=== PATIENT | female | born 1950 | race Caucasian/White ===

== ENCOUNTER 2016-09-20 17:28 | Emergency (ER) | payer OTHER ==
[2016-09-20 17:51] VITALS: BP 112/67; PULSE 78; RESP 16; TEMP 98.1; O2SAT 92
[2016-09-20] MEDS ORDERED: AMOXICILLIN/CLAVULANATE POT 875/125 MG TAB PO ONE ×2 (19:24→19:43)
--- NOTE | 2016-09-20 19:26 | UCPHY ---
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 Bite was to the wrist and the patient quickly withdrew her hand this does not think there is any significant compression involved but there workup puncture wounds and the superficial abrasion. The incident occurred at 3:00 p.m.. She clean the wound with peroxide and soapy water. She reports mild localized discomfort and thinks she might be slight warmth to touch to the area. She reports the pain is mild ROS: No fevers or chills. No numbness tingling. No difficulty moving affected fingers. 5 point ROS is otherwise negative. Smoking Status: Never smoked Physical Exam: Physical Exam Vital signs are normal. General: No acute distress Eyes: Pupils equal and react to light. Extraocular motions are intact. Lungs: No respiratory distress. Cardiac: Brisk capillary refill is intact throughout. Pulses are 2+ and symmetric in the affected extremity. Skin: No rash or pallor. Extremities: Atraumatic except for right distal forearm/wrist: Patient has 2 small puncture wounds 2 mm or so in size to the dorsum of the distal forearm- ulnar aspect there is also 1 cm superficial abrasion. Minimal underlying swelling. No foreign bodies and direct examination. Patient is able to extend all fingers without difficulty and versus resistance with full strength maintained mom no fluctuance. No erythema. Perhaps minimal warmth to touch. Neuro: Alert with no sensorimotor deficits in the affected extremity. Constitutional: Initial Vital Signs Temperature (C) 36.7 C 09/20/16 17:48 Heart Rate 78 09/20/16 17:48 Respiratory Rate 16 09/20/16 17:48 Blood Pressure 112/67 09/20/16 17:48 O2 Sat (%) 92 09/20/16 17:48 O2 Delivery Mode Room Air Allergies/Adverse Reactions: Sulfa (Sulfonamide Antibiotics) Allergy (Verified 09/20/16 17:48) Home Medications: Medication Instructions Recorded Amox Tr/K Clav (Augmentin) 500 mg PO TID #21 tab 09/20/16 [Augmentin 500/125 MG TAB (*)] MDM/Departure - MDM Medications Given: Discontinued Medications Amoxicillin/Clavulanate Potassium (Augmentin 875mg) 875 mg PO EDNOW ONE PRN Reason: Protocol Stop: 09/20/16 19:25 Last Admin: 09/20/16 19:30 Dose: 875 mg ED Course/Re-evaluation: Counseled the patient regarding her wound. She declined further cleaning here. No clinical evidence of foreign body, significant injury or other complications. Currently no evidence of cellulitis. Treated with 1st dose of Augmentin - Depart Disposition: Home, Routine, Self-Care Clinical Impression: Cat bite involving extremity Condition: Good Instructions: Animal Bite (ED) Additional Instructions: Dx: Cat bite R. wrist Plan: Apply warm packs to affected wrist augmentin antibiotic ibuprofen and tylenol for pain if needed. Return for any significant worsening despite treatment plan. Prescriptions: Amox Tr/K Clav (Augmentin) [Augmentin 500/125 MG TAB (*)] 500 mg PO TID #21 tab Referrals: NONE *PRIMARY CARE P,. [Primary Care Provider] - As per Instructions - PQRS PQRS Measurement: NA
== END 2016-09-20 19:56 | disposition home or self-care (01) ==
LOC: CED 17:28
DX: S61.531A Puncture wound without foreign body of right wrist, initial encounter (principal); Y99.0 Civilian activity done for income or pay; W55.01XA Bitten by cat, initial encounter
CPT/HCPCS: G0463-PO

== ENCOUNTER 2018-09-11 07:29 | Inpatient (IN) | payer OTHER, MEDICARE ==
[2018-09-11] MEDS ORDERED: PIPERACILLIN/TAZO 3.375 GM/DEX 50 ML IV ONE (08:05)
[2018-09-11] MEDS ORDERED: TDAP ADULT 0.5 ML INJ (BOOSTRIX) IM ONE (08:15)
--- NOTE | 2018-09-11 08:15 | EDPHY ---
H & P Stated Complaint: cat bite l hand yesterday/not responding to oral abx Time Seen by Provider: 09/11/18 07:50 HPI/ROS: CHIEF COMPLAINT: Cat bite left hand HISTORY OF PRESENT ILLNESS: 68-year-old female presents with a an infected cat bite to the left hand. She sustained multiple cat bites to the left hand and left forearm yesterday at work. She started Augmentin yesterday evening. She has taken 2 doses of Augmentin. This morning she woke up with increasing pain and swelling of the left hand and left forearm. The pain is moderate and is associated with drainage from 1 of the wounds. No fever. Tetanus is not up-to- date. REVIEW OF SYSTEMS: complete 10 point ROS reviewed and is negative except for the noted elements in the HPI - Personal History Current Tetanus Diphtheria and Acellular Pertussis (TDAP): Unsure - Medical/Surgical History Hx Asthma: No Hx Chronic Respiratory Disease: No Hx Diabetes: No Hx Cardiac Disease: No Hx Renal Disease: No Hx Cirrhosis: No Hx Alcoholism: No Hx HIV/AIDS: No Hx Splenectomy or Spleen Trauma: No Other PMH: denies - Social History Smoking Status: Never smoked - Physical Exam Exam: General Appearance: Alert, pleasant Eyes: Pupils equal and round, no conjunctival pallor or injection ENT, Mouth: Mucous membranes moist Neck: Normal inspection Respiratory: Lungs are clear to auscultation Cardiovascular: Regular rate and rhythm Gastrointestinal: Abdomen is soft and nontender Neurological: A&O, nonfocal, normal gait Skin: Warm and dry, no rash Extremities: Left upper extremity-multiple puncture wounds to the left forearm and hand, associated with erythema, warmth and tenderness on the dorsal aspect of the hand and the left forearm. Serous drainage at puncture site at the level of the 4th metacarpal Psychiatric: Mood and affect normal Constitutional: Initial Vital Signs Temperature (C) 37.2 C 09/11/18 07:34 Heart Rate 94 09/11/18 07:34 Respiratory Rate 18 09/11/18 07:34 Blood Pressure 111/61 09/11/18 07:34 O2 Sat (%) 94 09/11/18 07:34 O2 Delivery Mode Room Air Allergies/Adverse Reactions: Sulfa (Sulfonamide Antibiotics) Allergy (Verified 09/11/18 07:32) Home Medications: Medication Instructions Recorded Amoxicillin/Clavulanate Pot 875 mg PO BID 09/11/18 [Augmentin 875 MG TAB (*)] Carboxymethylcellulose 1% [Refresh 1 drop EACHEYE PRN PRN 09/11/18 Celluvisc] Fluticasone Nasal [Flonase Nasal 2 sprays EACHNARE DAILY PRN 09/11/18 [place] (RX)] Herbals/Supplements -Info Only 1 ea PO DAILY 09/11/18 Medical Decision Making - Diagnostics Imaging Results: X-ray independently reviewed by me reveals no foreign body. Imaging: I viewed and interpreted images myself ED Course/Re-evaluation: This patient presents with multiple infected cat bites to the left upper extremity. Likely pasteurella multocida, given onset less than 24 hr after cat bite. A wound culture was performed by me. Blood cultures were obtained and Zosyn IV given. X-ray reveals no evidence of foreign body. Does not meet SIRS criteria and initial lactate is normal. The hospitalist service was consulted for admission. Differential Diagnosis: includes though not limited to abscess, retained FB, tenosynovitis, joint infection - Data Points Laboratory Results: 09/11/18 08:04 VBG Lactic Acid 0.6 mmol/L L mmol/L (0.7-2.1) Medications Given: Enoxaparin Sodium (Lovenox) 40 mg SC DAILY BECK Stop: 03/10/19 08:59 Last Admin: 09/11/18 11:32 Dose: 40 mg Piperacillin/Tazobactam/Dextrose (Zosyn 3.375 Gm (Premix)) 50 mls @ 100 mls/hr IV Q6HRS BECK PRN Reason: Protocol Stop: 10/11/18 11:59 Last Admin: 09/11/18 11:32 Dose: 50 mls Discontinued Medications Diphtheria/Tetanus/Acell Pertussis (Boostrix) 0.5 ml IM .ONCE ONE Stop: 09/11/18 08:16 Last Admin: 09/11/18 09:02 Dose: 0.5 ml Piperacillin/Tazobactam/Dextrose (Zosyn 3.375 Gm (Premix)) 50 mls @ 100 mls/hr IV EDNOW ONE PRN Reason: Protocol Stop: 09/11/18 08:34 Last Admin: 09/11/18 08:59 Dose: 50 mls Departure - Departure Disposition: [facility] Inpatient Acute Clinical Impression: Cellulitis Qualifiers: Site of cellulitis: extremity Site of cellulitis of extremity: upper extremity Laterality: left Qualified Code(s): L03.114 - Cellulitis of left upper limb Condition: Good
[2018-09-11 08:43] LABS: PLATELET COUNT 276 10^3/uL (150-400)
[2018-09-11] MEDS ORDERED: ONDANSETRON DISINTEGRATING 4 MG TAB PO PRN (08:49)
[2018-09-11] MEDS ORDERED: OXYCODONE/APAP 5/325 TAB PO PRN (08:49)
[2018-09-11] MEDS ORDERED: ONDANSETRON 4 MG/2 ML VIAL IVP PRN (08:49)
[2018-09-11] MEDS ORDERED: ACETAMINOPHEN 325 MG TAB PO PRN (08:49)
[2018-09-11] MEDS: ENOXAPARIN 40 MG/0.4 ML SYR SC SCH (11:32)
[2018-09-11] MEDS: PIPERACILLIN/TAZO 3.375 GM/DEX 50 ML IV SCH ×3 (11:32→23:52)
--- NOTE | 2018-09-11 11:41 | ASMTCMCOM ---
CM Note CM Note Notes: Pt admitted for multiple infected cat bite wounds to her left hand and left forearm. Pt started Augmentin yesterday evening but woke up this morning with increased pain, swelling and drainage.. 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 Wound cultures and blood cultures pending. Anticipate pt to stabilize and DC home independent to followup outpatient. Date Signed: 09/11/2018 11:05 AM Electronically Signed By:Felicia Alvarado RN
--- NOTE | 2018-09-11 11:43 | PDGENHP ---
History and Physical - Chief Complaint L Hand pain/swelling - History of Present Illness Dania Raphael is a 68 yo F with no significant PMHx who presents to [facility] for L hand swelling/pain after getting bitten by a cat yesterday. 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 She began to have some swelling and erythema in her L hand yesterday. She was seen in urgent care where she was prescribed Augmentin which she took yesterday evening and this morning with worsening of swelling and erythema of her L hand and forearm. She denies any weakness, numbness but reports pain with ROM. She denies any f/c, chest pain, SOB, n/v, d/c. She does report some yellow drainage from bite site on her L hand this morning after a shower. History Information - Allergies/Home Medication List Allergies/Adverse Reactions: Sulfa (Sulfonamide Antibiotics) Allergy (Verified 09/11/18 07:32) Home Medications: Amoxicillin/Clavulanate Pot [Augmentin 875 MG TAB (*)] 875 mg PO BID 09/11/18 [ Last Taken Unknown] Carboxymethylcellulose 1% [Refresh Celluvisc] 1 drop EACHEYE PRN PRN 09/11/18 [ Last Taken Unknown] Fluticasone Nasal [Flonase Nasal [place] (RX)] 2 sprays EACHNARE DAILY PRN [Last Taken Unknown] Herbals/Supplements -Info Only 1 ea PO DAILY 09/11/18 [Last Taken Unknown] I have personally reviewed and updated: family history, medical history, social history, surgical history - Past Medical History no pertinent PMH - Surgical History Reports: no pertinent surgical hx - Family History Positive for: non-pertinent - Social History Smoking Status: Never smoked Review of Systems Review of Systems: ROS: 10pt was reviewed & negative except for what was stated in HPI & below Physical Exam Physical Exam: Temp Pulse Resp BP Pulse Ox 36.8 C 74 17 135/56 H 95 09/11/18 09:38 09/11/18 09:38 09/11/18 09:38 09/11/18 09:38 09/11/18 09:38 Constitutional: no apparent distress Eyes: PERRL Ears, Nose, Mouth, Throat: moist mucous membranes Cardiovascular: regular rate and rhythym Respiratory: no respiratory distress Gastrointestinal: soft, non-tender abdomen Skin: warm, erythema, other (Moderate Erythema and swelling L hand with multiple puncture sites ) Musculoskeletal: pain with ROM Neurologic: AAOx3 Psychiatric: interacting appropriately Lab Data & Imaging Review 09/11/18 08:30 09/11/18 08:30 WBC 10.65 10^3/uL (3.80-9.50) H 09/11/18 08:30 RBC 4.02 10^6/uL (4.18-5.33) L 09/11/18 08:30 Hgb 13.2 g/dL (12.6-16.3) 09/11/18 08:30 Hct 40.0 % (38.0-47.0) 09/11/18 08:30 MCV 99.5 fL (81.5-99.8) 09/11/18 08:30 MCH 32.8 pg (27.9-34.1) 09/11/18 08:30 MCHC 33.0 g/dL (32.4-36.7) 09/11/18 08:30 RDW 14.5 % (11.5-15.2) 09/11/18 08:30 Plt Count 276 10^3/uL (150-400) 09/11/18 08:30 MPV 9.8 fL (8.7-11.7) 09/11/18 08:30 Neut % (Auto) 73.3 % (39.3-74.2) 09/11/18 08:30 Lymph % (Auto) 15.1 % (15.0-45.0) 09/11/18 08:30 [place] % (Auto) 7.9 % (4.5-13.0) 09/11/18 08:30 Eos % (Auto) 2.3 % (0.6-7.6) 09/11/18 08:30 Baso % (Auto) 1.0 % (0.3-1.7) 09/11/18 08:30 Nucleat RBC Rel Count 0.0 % (0.0-0.2) 09/11/18 08:30 Absolute Neuts (auto) 7.80 10^3/uL (1.70-6.50) H 09/11/18 08:30 Absolute Lymphs (auto) 1.61 10^3/uL (1.00-3.00) 09/11/18 08:30 Absolute Monos (auto) 0.84 10^3/uL (0.30-0.80) H 09/11/18 08:30 Absolute Eos (auto) 0.25 10^3/uL (0.03-0.40) 09/11/18 08:30 Absolute Basos (auto) 0.11 10^3/uL (0.02-0.10) H 09/11/18 08:30 Absolute Nucleated RBC 0.00 10^3/uL (0-0.01) 09/11/18 08:30 Immature Gran % 0.4 % (0.0-1.1) 09/11/18 08:30 Immature Gran # 0.04 10^3/uL (0.00-0.10) 09/11/18 08:30 VBG Lactic Acid 0.6 mmol/L (0.7-2.1) L 09/11/18 08:04 Sodium 138 mEq/L (135-145) 09/11/18 08:30 Potassium 4.1 mEq/L (3.5-5.2) 09/11/18 08:30 Chloride 101 mEq/L (97-110) 09/11/18 08:30 Carbon Dioxide 28 mEq/l (22-31) 09/11/18 08:30 Anion Gap 9 mEq/L (6-14) 09/11/18 08:30 BUN 20 mg/dL (7-23) 09/11/18 08:30 Creatinine 0.6 mg/dL (0.6-1.0) 09/11/18 08:30 Estimated GFR > 60 09/11/18 08:30 Glucose 94 mg/dL (70-100) 09/11/18 08:30 Calcium 9.1 mg/dL (8.5-10.4) 09/11/18 08:30 Assessment & Plan Assessment: Cat Bite -S/ multiple cat bites yesterday with increased swelling, erythema, drainage overnight - Rx augmentin yesterday, s/p 2 doses with worsening of symptoms - Not meeting SIRS criteria on admission, mild leukocytosis (WBC 10.6 on admission), afebrile, no tachycardia/tachypnea - S/p Zosyn in ED, will continue [id number] - L Hand/Forearm XR performed on admission showing soft tissue swelling, no foreign body present or signs of OM - Will consult hand surgery for evaluation, unlikely any debridement necessary - S/p Tetanus shot in ED - Blood and wound cultures pending Allergic Rhinitis - Continue home Flonase FEN: IVF PRN, Regular DVT PPx: Lovenox Code: FULL Dispo: Admit to Observation
[2018-09-11] MEDS ORDERED: FLUTICASONE NASAL 120 SPRAYS/16 GM MDI EACHNARE PRN (11:54)
[2018-09-11] MEDS ORDERED: CARBOXYMETHYLCELLULOSE 1% 0.4 ML DROPERETTE EACHEYE PRN (11:54)
[2018-09-11] MEDS: HYDROGEN PEROXIDE 236 ML BOTTLE TP SCH ×2 (16:42→22:51)
--- NOTE | 2018-09-11 23:04 | GCON ---
[f rep st] CONSULTATION REFERRING PHYSICIAN: Marco Jacome DO REASON FOR CONSULTATION AND CHIEF COMPLAINT: Left hand pain and swelling after cat bite. HISTORY OF PRESENT ILLNESS: The patient is a 68-year-old female with no significant past medical his tory, who presented to the [facility] ER today with left hand and forearm redness, pain, and swelling after getting bitten by cat yesterday. 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 There were some scratches as well. Yesterday, she began to experience swelling and erythema in the left hand. She was seen at an urgent care. Augment in was prescribed. After a dose of Augmentin, there was worsening of swelling and erythema of her le ft hand and forearm, and she decided to present to the ER. She was admitted to the internal medicine service. I am consulted for any further management. MEDICATIONS: Please see MAR. ALLERGIES: Sulfa. PAST MEDICAL HISTORY: None. SURGICAL HISTORY: None. FAMILY HISTORY: Noncontributory. SOCIAL HISTORY: She is not a smoker. REVIEW OF SYSTEMS: 10-point review of systems is negative, except as noted above. OBJECTIVE/PHYSICAL EXAM: GENERAL: Alert and oriented, in no apparent distress. MUSCULOSKELETAL: L eft hand and forearm: There are multiple puncture sites over the dorsal forearm and dorsal left hand with a larger one in the 4th web space. There is mild diffuse erythema over the dorsal hand. There is no fluctuance over any of these punctures. There is a mild serous drainage over the punctures ov er the hand. She makes a full fist and has full extension of the digits. ASSESSMENT AND PLAN: Left hand and forearm cellulitis due to cat bite. The patient appears to be im proving with the dose of intravenous antibiotics here in the hospital. She herself admits that it fe els better. I do not see any signs of abscess currently. I do not feel any surgical intervention is indicated. I would recommend beginning soaks both here in hospital and at home until the cellulitis resolves. I will follow with the patient while she is in the hospital. /[id number]/MODL
[2018-09-12] MEDS: PIPERACILLIN/TAZO 3.375 GM/DEX 50 ML IV SCH ×3 (05:26→18:11)
[2018-09-12] MEDS: ENOXAPARIN 40 MG/0.4 ML SYR SC SCH (09:35)
[2018-09-12] MEDS: HYDROGEN PEROXIDE 236 ML BOTTLE TP SCH ×2 (09:36→22:19)
--- NOTE | 2018-09-12 12:49 | HOSPPROG ---
Hospitalist Progress Note Assessment/Plan: Cat Bite -S/ multiple cat bites yesterday with increased swelling, erythema, drainage overnight - Rx augmentin on 09/10, s/p 2 doses with worsening of symptoms - Not meeting SIRS criteria on admission, mild leukocytosis (WBC 10.6 on admission), afebrile, no tachycardia/tachypnea - S/p Zosyn in ED, will continue [id number] - L Hand/Forearm XR performed on admission showing soft tissue swelling, no foreign body present or signs of OM - Hand surgery consulted on 09/11, no debridement or surgical intervention needed , appreciate input - S/p Tetanus shot in ED - Blood and wound cultures pending Allergic Rhinitis - Continue home Flonase FEN: IVF PRN, Regular DVT PPx: Lovenox Code: FULL Dispo: Pending clinical course, will require 24 more hours of IV abx Subjective: Patient reports improved swelling and erythema of L hand Objective: Vital Signs Temp Pulse Resp BP Pulse Ox 36.4 C 86 18 113/62 92 09/12/18 11:27 09/12/18 11:27 09/12/18 11:27 09/12/18 11:27 09/12/18 11:27 Laboratory Results 09/11/18 08:30 09/11/18 08:30 09/11/18 09/12/18 09/13/18 05:59 05:59 05:59 Intake Total 1240 Balance 1240 - Physical Exam Constitutional: no apparent distress Eyes: PERRL Ears, Nose, Mouth, Throat: moist mucous membranes Respiratory: no respiratory distress Gastrointestinal: soft, non-tender abdomen Skin: warm, erythema Musculoskeletal: full muscle strength Neurologic: AAOx3 Psychiatric: interacting appropriately ICD10 Worksheet Patient Problems: Problems Problem Status Onset Cellulitis Acute
--- NOTE | 2018-09-12 13:55 | PDMN ---
Medical Necessity Medical necessity: MCG: M70 cellulitis 68 yoF with mult cat bites s/p I/D, req . IVabx -ortho consult- status changed to INPT 09/12 for ongoing med nec>2MN req further monitoring ,eval and tx - IV abx.
--- NOTE | 2018-09-12 18:21 | SOAPPROG ---
SOAP Progress Note Assessment/Plan: Assessment: L hand and forearm infected cat bite -clinically improving Plan: -cont soaks -IV abx. Anticipate she will d/c soon with current improvement 09/12/18 18:21 Subjective: Pt seen this afternoon. Hand feels much better Objective: Vital Signs Temp Pulse Resp BP Pulse Ox 36.4 C 82 18 94/42 L 90 L 09/12/18 15:10 09/12/18 15:10 09/12/18 15:10 09/12/18 15:10 09/12/18 15:10 09/11/18 09/12/18 09/13/18 05:59 05:59 05:59 Intake Total 900 Balance 900 L hand and forearm -erythema decreased -minimal swelling -full motion hand and wrist without pain ICD10 Worksheet Patient Problems: Problems Problem Status Onset Cellulitis Acute
[2018-09-13] MEDS: PIPERACILLIN/TAZO 3.375 GM/DEX 50 ML IV SCH ×2 (00:24→05:28)
[2018-09-13] MEDS ORDERED: AMOXICILLIN/CLAVULANATE POT 875/125 MG TAB PO SCH (09:15)
--- NOTE | 2018-09-13 09:26 | ASMTLACE ---
LACE Length of stay for Answers: Less than 1 day current admission Acuity / Level of Answers: No Care: Did the patient have an inpatient admission? # of Emergency department Answers: 1-2 visits in the last 6 months Score: 1 Date Signed: 09/13/2018 09:25 AM Electronically Signed By:Alma Becerra RN
--- NOTE | 2018-09-13 09:29 | ASMTDCNOTE ---
Case Management Discharge Discharge Order Complete? Answers: Yes Patient to Obtain Answers: Independently Medications Transportation Arranged Answers: Family/Friends Family Notified Answers: Yes Discharge Comments Notes: Patient medically cleared for independent discharge to home. No needs identified at present time. CM available should needs arise. Date Signed: 09/13/2018 09:29 AM Electronically Signed By:Alma Becerra RN
[2018-09-13 09:51] VITALS: BP 109/57
[2018-09-13] MEDS: ENOXAPARIN 40 MG/0.4 ML SYR SC SCH (10:12)
[2018-09-13] MEDS: HYDROGEN PEROXIDE 236 ML BOTTLE TP SCH (10:12)
--- NOTE | 2018-09-13 17:18 | PDDCSUM ---
Discharge Summary Discharge Summary: Date of Admission: 09/11/2018 Date of Discharge: 09/13/2018 Consults: Hand surgery Procedures: Hand XR Followup: PCP within 1 week to evaluate status of infection Hospital Course Problem List: Cat Bite -S/ multiple cat bites with increased swelling, erythema, drainage overnight - Rx augmentin on 09/10, s/p 2 doses with worsening of symptoms - Not meeting SIRS criteria on admission, mild leukocytosis (WBC 10.6 on admission), afebrile, no tachycardia/tachypnea - S/p Zosyn for 48 hours with significant improvement in erythema, swelling - Transitioned back to Augmentin 875 mg BID for total 10 day course - L Hand/Forearm XR performed on admission showing soft tissue swelling, no foreign body present or signs of OM - Hand surgery consulted on 09/11, no debridement or surgical intervention needed , appreciate input - S/p Tetanus shot in ED - Wound culture growing Pasturella, blood cultures NGTD Allergic Rhinitis - Continue home Flonase Time spent on discharge was >35 minutes with >50% of time spent on patient education and counseling.
== END 2018-09-13 10:21 | disposition home or self-care (01) | DRG 603 ==
LOC: F1N 09:34 → OBSVTOIN 09-12 12:55
PROVIDERS: ADMIT Internal Medicine; ATTEND Internal Medicine
DX: L03.114 Cellulitis of left upper limb (principal); S51.852A Open bite of left forearm, initial encounter; S61.452A Open bite of left hand, initial encounter; W55.01XA Bitten by cat, initial encounter; Y99.0 Civilian activity done for income or pay
CPT/HCPCS: 96365; G0378; J1650; J2543